=== PATIENT | male | born 1945 | race Caucasian/White ===

== ENCOUNTER → 2016-05-05 | Outpatient (CLI) | payer OTHER, MEDICARE | LOC: BHLMT 11:00 | PROVIDERS: ATTEND Internal Medicine Interventional Cardiology | DX: R07.9 Chest pain, unspecified (principal); I49.3 Ventricular premature depolarization; I10 Essential (primary) hypertension; E78.5 Hyperlipidemia, unspecified | CPT/HCPCS: 93005-PO ==

== ENCOUNTER → 2016-05-07 | Outpatient (CLI) | payer OTHER, MEDICARE ==
--- NOTE | 2016-05-07 15:39 | DX ---
Chest, PA and Lateral. 07 May 2016 History: Shortness of breath. Evaluate for pneumonia. Findings: Heart size is within normal limits. Tyree cardiac density is seen indicating hiatal herni a. Minimal peribronchial wall thickening is seen bilaterally. No evidence for acute airspace consolid ation. Emphysematous configuration of the chest. Some mild apical pleural thickening bilaterally. Mil d degenerative change is seen in the thoracic spine. Scoliotic curvature of thoracic spine. No eviden ce for pleural effusion or pneumothorax. Impression: Moderate-sized hiatal hernia. Probable mild bronchitis. Other chronic findings as above.
== END ==
LOC: GIMAGING 14:37 → EDSTATUS 15:25
PROVIDERS: ATTEND Internal Medicine
DX: J98.4 Other disorders of lung (principal); K44.9 Diaphragmatic hernia without obstruction or gangrene
CPT/HCPCS: 71020-PO

== ENCOUNTER → 2016-05-08 | Outpatient (CLI) | payer OTHER, MEDICARE | LOC: BHFA 09:00 | PROVIDERS: ATTEND Internal Medicine Cardiovascular Disease | DX: R07.9 Chest pain, unspecified (principal) ==

== ENCOUNTER → 2016-05-11 | Outpatient (CLI) | payer OTHER, MEDICARE | LOC: BHFA 16:00 | PROVIDERS: ATTEND Internal Medicine Interventional Cardiology | DX: I49.3 Ventricular premature depolarization (principal) ==